=== PATIENT | female | born 1950 | race African-American/Black ===

== ENCOUNTER 2023-09-28 20:56 | Emergency (ER) | payer OTHER ==
[2023-09-28 21:11] VITALS: BMI 18.1
[2023-09-28] MEDS ORDERED: ACETAMINOPHEN 1000 MG/100 ML BAG IVPB ONE (22:12)
[2023-09-28] MEDS ORDERED: SODIUM CHLORIDE 500 ML IV STA (22:55)
[2023-09-28] MEDS ORDERED: ACETAMINOPHEN INJECTION 100 ML IVPB ONE (23:01)
[2023-09-29 00:46] LABS: BASO % 0.6 % (0-2.0); EOS % 0.5 % (0-4.5); HEMATOCRIT 36.9 % (32.4-45.2); LYMPH % 10.8 % (8-40); MCHC 32.4 g/dl (32.0-36.0); MEAN CELL VOLUME 89.4 fl (80-96); MEAN PLT VOLUME 7.1 fl (7.5-11.1); MONO % 9.3 % (3.8-10.2); NEUT % 78.8 % (42.8-82.8); PLATELET COUNT 581 10^3/uL (134-434); RBC 4.12 M/mm3 (3.60-5.2); RDW 15.1 % (11.6-15.6); WHITE BLOOD COUNT 18.2 K/mm3 (4.0-10.0)
[2023-09-29 00:54] LABS: INR 1.11 (0.83-1.09); PROTHROMBIN TIME (PATIENT) 12.9 SEC (9.7-13.0)
[2023-09-29 00:57] LABS: ACTIVATED PTT 27.5 SECONDS (25.2-36.5)
[2023-09-29 01:04] LABS: POTASSIUM 5.3 mmol/L (3.5-5.1)
[2023-09-29 01:07] LABS: ALBUMIN 3.3 g/dl (3.4-5.0); BLOOD UREA NITROGEN 17.5 mg/dL (7-18); MAGNESIUM 2.1 mg/dL (1.8-2.4)
[2023-09-29 01:08] LABS: VENOUS BASE EXCESS 2.4 mmol/L (-2-2); VENOUS O2 SATURATION 17.7 % (70-80); VENOUS PCO2 59.2 mmHg (38-52); VENOUS PH 7.319 (7.310-7.410)
[2023-09-29 01:10] LABS: CREATININE 0.9 mg/dL (0.55-1.3)
[2023-09-29 01:12] LABS: BILIRUBIN,TOTAL 0.6 mg/dL (0.2-1); TOT PROT 8.9 g/dl (6.4-8.2)
[2023-09-29 01:28] VITALS: BP 96/52; PULSE 109; RESP 16; TEMP 99.8
[2023-09-29] MEDS ORDERED: SODIUM CHLORIDE 500 ML IV STA (02:00)
== END 2023-09-29 03:31 | disposition short-term general hospital (02) ==
LOC: JER 20:56
PROC: 3E033NZ Introduction of Analgesics, Hypnotics, Sedatives into Peripheral Vein, Percutaneous Approach (ICD-10-PCS; principal; 2023-09-29)
PROC: 3E0337Z Introduction of Electrolytic and Water Balance Substance into Peripheral Vein, Percutaneous Approach (ICD-10-PCS; 2023-09-29)
DX: S31.000A Unspecified open wound of lower back and pelvis without penetration into retroperitoneum, initial encounter (principal); M25.511 Pain in right shoulder; R53.1 Weakness; R05.9 Cough, unspecified; R00.0 Tachycardia, unspecified; W19.XXXA Unspecified fall, initial encounter; Z20.822 Contact with and (suspected) exposure to COVID-19
CPT/HCPCS: 36415; 70450-TC; 71046-TC-FY; 72125-TC; 73030-TC-RT-FY; 74176-TC; 80053; 82803; 83605; 83735; 84484; 85025; 85610; 85651; 85730; 86140; 87040; 87635; 93005; 93010; 99285-25